=== PATIENT | female | born 1970 | race Caucasian/White ===

== ENCOUNTER 2017-08-22 18:00 | Observation (INO) | payer SELFPAY ==
[~2017-08-22] VITALS: Ht 157.5 cm; Wt 98.6 kg
[2017-08-22] MEDS ORDERED: NITROGLYCERIN 2% 1 GM OINT PKT TD STA (18:50)
[2017-08-22] MEDS ORDERED: ASPIRIN 81 MG TAB PO STA (18:50)
[2017-08-22] MEDS ORDERED: NITROGLYCERIN (SL) 0.4 MG TAB SL PRN ×2 (19:00→23:00)
[2017-08-22 19:07] LABS: BASOPHIL # 0.1 10^3/ul (0.0-0.1); BASOPHILS % 0.4 % (0.0-2.0); EOSINOPHILS # 0.2 10^3/ul (0.0-0.5); EOSINOPHILS % 1.3 % (0.0-7.0); HEMATOCRIT 45.5 % (37.0-47.0); HEMOGLOBIN 15.3 g/dl (12.0-16.0); LYMPHOCYTES % 35.4 % (15.0-51.0); MEAN CORPUSCULAR HEMOGLOBIN 29.9 pg (29.0-33.0); MEAN CORPUSCULAR HGB CONC 33.6 g/dl (32.0-37.0); MEAN PLATELET VOLUME 10.6 fl (7.4-10.4); MONOCYTE # 0.6 10^3/ul (0.3-0.9); MONOCYTES % 5.6 % (0.0-11.0); NEUTROPHIL # 6.4 10^3/ul (1.6-7.5); PLATELET COUNT 287 10^3/UL (140-415); RED BLOOD COUNT 5.11 10^6/ul (4.20-5.40); RED CELL DISTRIBUTION WIDTH 12.5 % (11.5-14.5); WHITE BLOOD COUNT 11.3 10^3/ul (4.8-10.8)
--- NOTE | 2017-08-22 19:26 | RADRPT ---
PROCEDURE: Chest x-ray CLINICAL INDICATION: Chest pain TECHNIQUE: Chest single view COMPARISON: None FINDINGS: The heart is normal in size. The pulmonary vessels are normal in caliber. The lungs are clear. Th e costophrenic angles are sharp. The visualized bony thorax is unremarkable. IMPRESSION: No acute cardiopulmonary disease. RPTAT: HH .Trevon Barragan MD, Date Time Electronically viewed and signed by .Trevon Barragan MD, MD on 08/22/2017 19:25 .W/
[2017-08-22 19:27] LABS: ANION GAP 15 (8-16); BLOOD UREA NITROGEN 14 mg/dl (7-20); CALCIUM 9.8 mg/dl (8.4-10.2); CARBON DIOXIDE 28 mmol/L (21-31); CHLORIDE 106 mmol/L (97-110); CREATININE 0.92 mg/dl (0.44-1.00); GLUCOSE 129 mg/dl (70-220); SODIUM 145 mmol/L (135-144)
[2017-08-22 19:41] LABS: TROPONIN-I < 0.012 ng/ml (0.00-0.12)
[2017-08-22] MEDS ORDERED: KETOROLAC 30 MG INJ IV STA (20:16)
[2017-08-22] MEDS ORDERED: ACETAMINOPHEN 325 MG TAB PO PRN (20:30)
[2017-08-22] MEDS ORDERED: ONDANSETRON 4 MG INJ IV PRN (20:30)
--- NOTE | 2017-08-22 20:51 | ERD ---
ER Documentation Chief Complaint Chief Complaint sent by clinic for cp, given nitro sl x1 (no relief), asa 81mg HPI Patient is a 47-year-old female with no medical problems who presents with chest pain and shortness of breath. She has had chest pain for 1 week. She has shortness of breath. She has dyspnea on exertion. She was sent by the clinic for chest pain and admission. She has diffuse weakness and right-sided arm numbness. Upon review of old medical records this is the patient's first visit to the emergency department. ROS All systems reviewed and are negative except as per history of present illness. Medications Home Meds No Active Prescriptions or Reported Meds Allergies Allergies: Coded Allergies: No Known Allergy (Unverified , 08/22/17) PMhx/Soc Medical and Surgical Hx: pt denies Medical Hx History of Surgery: No Anesthesia Reaction: No Hx Neurological Disorder: No Hx Respiratory Disorders: No Hx Cardiac Disorders: No Hx Psychiatric Problems: No Hx Miscellaneous Medical Probl: No Hx Alcohol Use: No Hx Substance Use: No Hx Tobacco Use: No Smoking Status: Never smoker FmHx Family History: coronary disease Physical Exam Vitals Vital Signs Date Time Temp Pulse Resp B/P Pulse Ox O2 Delivery O2 Flow Rate FiO2 08/22/17 18:01 98.6 83 20 183/97 98 Physical Exam Const: Moderate distress secondary to shortness of breath Head: Atraumatic Eyes: Normal Conjunctiva ENT: Normal External Ears, Nose and Mouth. Neck: Full range of motion..~ No meningismus. Resp: Clear to auscultation bilaterally Cardio: Regular rate and rhythm, no murmurs Abd: Soft, non tender, non distended. Normal bowel sounds Skin: No petechiae or rashes Back: No midline or flank tenderness Ext: No cyanosis, or edema Neur: Awake and alert Psych: Normal Mood and Affect Result Diagram: 08/22/17189908/22/171899 Results 24 hrs Laboratory Tests Test 08/22/17 19:00 White Blood Count 11.310^3/ul Red Blood Count 5.1110^6/ul Hemoglobin 15.3g/dl Hematocrit 45.5% Mean Corpuscular Volume 89.0fl Mean Corpuscular Hemoglobin 29.9pg Mean Corpuscular Hemoglobin Concent 33.6g/dl Red Cell Distribution Width 12.5% Platelet Count 41226^3/UL Mean Platelet Volume 10.6fl Neutrophils % 57.0% Lymphocytes % 35.4% Monocytes % 5.6% Eosinophils % 1.3% Basophils % 0.4% Nucleated Red Blood Cells % 0.0/100WBC Neutrophils # 6.410^3/ul Lymphocytes # 4.010^3/ul Monocytes # 0.610^3/ul Eosinophils # 0.210^3/ul Basophils # 0.110^3/ul Nucleated Red Blood Cells # 0.010^3/ul Sodium Level 145mmol/L Potassium Level 4.0mmol/L Chloride Level 106mmol/L Carbon Dioxide Level 28mmol/L Anion Gap 15 Blood Urea Nitrogen 14mg/dl Creatinine 0.92mg/dl Glucose Level 129mg/dl Calcium Level 9.8mg/dl Troponin I < 0.012ng/ml Current Medications Medications (Trade) Dose Ordered Sig/[place] Route PRN Reason Start Time Stop Time Status Last Admin Dose Admin Aspirin (Aspirin) 162 mg ONCE STAT PO 08/22/17 18:50 08/22/17 18:51 DC 08/22/17 19:08 Nitroglycerin (Nitroglycerin 2% Oint) 1 inch ONCE STAT TD 08/22/17 18:50 08/22/17 18:51 DC 08/22/17 19:09 Nitroglycerin (Nitroglycerin (Sl Tab) 0.4 Mg) 1 tab Q5M UP TO 3 DOSES PRN SL CHEST PAIN 08/22/17 19:00 Ondansetron HCl (Zofran Inj) 4 mg ER BRIDGE PRN IV NAUSEA AND/OR VOMITING 08/22/17 20:30 08/23/17 20:29 Acetaminophen (Tylenol Tab) 650 mg ER BRIDGE PRN PO MILD PAIN/FEVER 08/22/17 20:30 08/23/17 20:29 Ketorolac Tromethamine (Toradol) 30 mg ONCE STAT IV 08/22/17 20:16 08/22/17 20:17 DC 08/22/17 20:45 Procedures/MDM EKG read by me: Rate/Rhythm: Regular rate and rhythm at a normal rate Intervals: Normal Impression: No evidence of ischemia or arrhythmia Chest x-ray negative per radiology. Patient is a 47-year-old female with a family history of coronary disease who presents with chest pain and dyspnea on exertion. I am concerned for possible acute coronary syndrome given her symptoms. She was sent by an outpatient clinic for admission. I doubt pneumonia, pneumothorax, pulmonary embolism, or aortic dissection. The patient was given aspirin and nitroglycerin empirically. I believe an observation admission is appropriate at this time. Departure Diagnosis: Primary Impression: Chest pain Chest pain type: unspecified Qualified Code: R07.9 - Chest pain, unspecified type Condition: TEJ Fonseca MD Aug 22, 2017 20:51
[2017-08-22 20:56] VITALS: TEMP 98.6
[2017-08-22 21:12] VITALS: PULSE 75
[2017-08-22 21:19] VITALS: BP 131/78; RESP 16
[2017-08-22 21:34] VITALS: Ht 157.5 cm; Wt 98.6 kg
[2017-08-22] MEDS ORDERED: morphine 4 MG/ML VIAL IV PRN (23:00)
[2017-08-23] VITALS (10 sets, daily range): BP systolic 106–131; BP diastolic 52–80; PULSE 62–75; RESP 18–20
[2017-08-23 01:38] LABS: CREATINE KINASE 173 IU/L (23-200)
[2017-08-23 01:52] LABS: CK-MB 2.49 ng/ml (0.0-2.4)
[2017-08-23 01:57] LABS: TROPONIN-I < 0.012 ng/ml (0.00-0.12)
--- NOTE | 2017-08-23 05:01 | HP ---
Date/Time of Note Date/Time of Note DATE: 08/23/17 TIME: 04:58 Assessment/Plan VTE Prophylaxis VTE Prophylaxis Intervention: heparin Lines/Catheters IV [facility]from [facility] Saline Lock Urinary Cath still in place: No Assessment/Plan Assessment/Plan ASSESSMENT 47-year-old female with no significant past medical history, but a strong family history of heart disease presented with a progressively worsening chest pain and shortness of breath time 1 week as well as right arm numbness/ weakness. Need to rule out ACS PLAN Continue telemetry monitoring Supplemental oxygen, aspirin with as needed nitro morphine Trend troponins We will obtain 2D echo Cardiology consult Additional workup based on clinical course HPI/ROS Admit Date/Time Admit Date/Time Aug 22, 2017 at 20:02 Hx of Present Illness This is a 47-year-old female with no significant past medical history who presents to the emergency department complaining of chest pain and shortness of breath. She has been having the symptoms for about a month and has been progressively getting worse. She was seen at a clinic today and was sent to ER for evaluation. Chest pain is mainly located in the mid chest and is described as pressure-like, worse with exertion and better with rest. She also reported right upper extremity numbness/weakness, which has already resolved. She said her father of heart disease around the age of 35. When she presented to the ER, vitals were stable. Basic labs within acceptable range. First troponin is negative. EKG was no ST-T wave abnormalities. Chest x-ray was no acute cardiopulmonary disease. PMH/Family/Social Social History Smoking Status: Never smoker Exam/Review of Systems Vital Signs Vitals Vital Signs Date Time Temp Pulse Resp B/P Pulse Ox O2 Delivery O2 Flow Rate FiO2 08/23/17 04:47 97.5 69 20 118/68 97 Exam Constitutional: alert, oriented, well developed Head: atraumatic, normocephalic Eyes: EOMI, PERRL Respiratory: clear to auscultation, normal air movement Cardiovascular: nl pulses, regular rate and rhythm Gastrointestinal: soft Extremities: normal pulses Labs Result Diagram: 08/22/17189908/22/171899 Medications Medications Current Medications Nitroglycerin (Nitroglycerin (Sl Tab) 0.4 Mg) 1 tab Q5M PRN SL ANGINA Last administered on 08/22/17t 23:00; Admin Dose 1 TAB; Start 08/22/17 at 23:00 Morphine Sulfate (morphine) 3 mg Q4H PRN IV pain level above 7; Start 08/22/17 at 23:00 Heparin Sodium (Porcine) (Heparin (5000 Units/0.5 ml)) 5,000 unit BID SC ; Start 08/23/17 at 09:00 ODELL CAMPBELL MD Aug 23, 2017 05:01
[2017-08-23 08:15] LABS: CREATINE KINASE 154 IU/L (23-200)
[2017-08-23 08:25] LABS: TROPONIN-I < 0.012 ng/ml (0.00-0.12)
[2017-08-23] MEDS ORDERED: ASPIRIN (EC) 81 MG TAB PO SCH (09:00)
[2017-08-23] MEDS ORDERED: HEPARIN 5,000 UNIT/0.5 ML VIAL SC SCH (09:00)
--- NOTE | 2017-08-23 14:25 | PN ---
Date/Time of Note Date/Time of Note DATE: 08/23/17 TIME: 14:24 Assessment/Plan VTE Prophylaxis VTE Prophylaxis Intervention: heparin Lines/Catheters [facility] Saline Lock Urinary Cath still in place: No Assessment/Plan Chief Complaint/Hosp Course Patient is a 47-year-old female no [place] past medical history who presents with chest pain Assessment and plan Exertional chest pain Mild hypernatremia Obesity Strong history of cardiac disorder, father at 35 -Cardiology consulted, patient had classical chest pain symptoms, has not seen a PCP in quite a while, troponins are negative, echocardiogram pending -No chest pain now, monitor, will follow up with cardiology recommendations Disposition; pending cardiology next Problems: Subjective 24 Hr Interval Summary Free Text/Dictation no acute issues , no chest pain anymore Exam/Review of Systems Vital Signs Vitals Vital Signs Date Time Temp Pulse Resp B/P Pulse Ox O2 Delivery O2 Flow Rate FiO2 08/23/17 12:02 73 08/23/17 11:39 98.0 18 131/80 96 Intake and Output 08/22/17 08/22/17 08/23/17 15:00 23:00 07:00 Intake Total 200 ml Balance 200 ml Exam Physical exam General: Patient is laying in bed and answers questions appropriately Mentation: Patient is alert and oriented 4, Head: Normocephalic atraumatic Eyes: EOMI, pupils reactive to light Neck: Supple, nontender, midline Respiratory: Clear to auscultation bilaterally Cardiovascular: regular rate, no obvious murmurs Gastrointestinal: non-tender to palpation, bowel sounds heard. Neurological: Moves all extremities spontaneously Skin: No new skin lesions Results Result Diagram: 08/22/17189908/22/171899 Results 24 hrs Laboratory Tests Test 08/22/17 19:00 08/23/17 00:46 08/23/17 07:00 White Blood Count 11.3 H Red Blood Count 5.11 Hemoglobin 15.3 Hematocrit 45.5 Mean Corpuscular Volume 89.0 Mean Corpuscular Hemoglobin 29.9 Mean Corpuscular Hemoglobin Concent 33.6 Red Cell Distribution Width 12.5 Platelet Count 287 Mean Platelet Volume 10.6 H Neutrophils % 57.0 Lymphocytes % 35.4 Monocytes % 5.6 Eosinophils % 1.3 Basophils % 0.4 Nucleated Red Blood Cells % 0.0 Neutrophils # 6.4 Lymphocytes # 4.0 H Monocytes # 0.6 Eosinophils # 0.2 Basophils # 0.1 Nucleated Red Blood Cells # 0.0 Sodium Level 145 H Potassium Level 4.0 Chloride Level 106 Carbon Dioxide Level 28 Anion Gap 15 Blood Urea Nitrogen 14 Creatinine 0.92 Glucose Level 129 Calcium Level 9.8 Troponin I < 0.012 < 0.012 < 0.012 Creatine Kinase 173 154 Creatine Kinase Index 1.4 1.5 Creatinine Kinase MB (Mass) 2.49 H 2.30 Medications Medications Current Medications Nitroglycerin (Nitroglycerin (Sl Tab) 0.4 Mg) 1 tab Q5M PRN SL ANGINA Last administered on 08/22/17 23:00; Admin Dose 1 TAB; Start 08/22/17 at 23:00 Morphine Sulfate (morphine) 3 mg Q4H PRN IV pain level above 7; Start 08/22/17 at 23:00 Heparin Sodium (Porcine) (Heparin (5000 Units/0.5 ml)) 5,000 unit BID SC Last administered on 08/23/17 08:58; Admin Dose 5,000 UNIT; Start 08/23/17 at 09:00 Aspirin (Halfprin) 81 mg DAILY PO Last administered on 08/23/17 08:52; Admin Dose 81 MG; Start 08/23/17 at 09:00 JEOVANNY MEYER Aug 23, 2017 14:25
[2017-08-23] MEDS ORDERED: SOD CHLORIDE 0.45% 1,000 ML IV SCH (14:30)
--- NOTE | 2017-08-23 15:52 | RADRPT ---
Echocardiogram Report Patient Name: ESPERANZA NOVAK Gender: Female Date: 1970 Study Date: 23-Aug-2017 Incubator Operator: Say Sneed [facility] Location: 5545 Ref. Physician: ODELL CAMPBELL Quality: Good Procedures: Transthoracic echocardiogram with complete 2D, M-Mode, and doppler examination. Indications: Chest Pain. 2D/M Mode Doppler Measurement Value Normal Ranges Measurement Value Normal Ranges LVIDd 2D 3.9 3.5 - 5.6 cm AV Peak Emanuel 1.2 m/sec LVIDs 2D 2.1 2.1 - 4.1 cm AV Peak PG 6.0 mmHg FS 2D 47.6 % LVOT Peak Emanuel 1.1 m/sec LVPWd 2D 1.1 0.6 - 1.1 cm LVOT Peak PG 5.0 mmHg IVSd 2D 1.2 0.6 - 1.1 cm MV E Peak Emanuel 0.6 m/sec IVS/LVPW 2D 1.1 MV A Peak Emanuel 0.8 m/sec AoR Diam 2D 2.8 2.0 - 3.7 cm MV E/A 0.8 LA/Ao 2D 1 0 - 1 MV Decel Time 158 msec EDV 2D 60.7 cm3 MV E/A 0.8 ESV 2D 8.7 cm3 TR Peak Emanuel 2.2 m/sec LA Dimen 2D 3.4 2.3 - 4.0 cm TR Peak PG 18.0 mmHg RVSP 21.0 mmHg Findings Left Ventricle: Normal left ventricular systolic function. Normal left ventricular cavity size. Mild concentric left ventricular hypertrophy. Ejection fraction is visually estimated at 65 %. Tissue Doppler/Mitral Doppler indices are consistent with impaired relaxation (Stage I diastolic dysfunction). Right Ventricle: Normal right ventricular size. Normal right ventricular systolic function. Left Atrium: The left atrium is normal in size. Right Atrium: The right atrium is normal in size. Mitral Valve: Normal appearance of the mitral valve. Mild mitral annular calcification. Trace mitral regurgitation. Aortic Valve: No significant aortic stenosis or insufficiency. Aortic cusps appear mildly calcified. Tricuspid Valve: Normal appearance of the tricuspid valve. Estimated peak PA systolic pressure 21 mmHg. There is trace tricuspid regurgitation. Pulmonic Valve: Normal pulmonic valve appearance. Pericardium: Normal pericardium with no significant pericardial effusion. Aorta: Normal aortic root. IVC: Normal size and normal respiratory collapse consistent with normal right atrial pressure. Conclusions 1.Normal left ventricular systolic function. Normal left ventricular cavity size. Mild concentric left ventricular hypertrophy. Ejection fraction is visually estimated at 65 %. Tissue Doppler/Mitral Doppler indices are consistent with impaired relaxation (Stage I diastolic dysfunction). 2.Normal right ventricular size. Normal right ventricular systolic function. 3.The left atrium is normal in size. 4.The right atrium is normal in size. 5.No significant valvular stenosis or regurgitation seen. 6.Normal pericardium with no significant pericardial effusion. Electronically Signed By: Star Le 23-Aug-2017 15:51:41 -0800 Patient Name: ESPERANZA NOVAK Study Date: 23-Aug-2017 [id number]
[2017-08-23] MEDS ORDERED: LISI-313 PO (16:48)
[2017-08-23] MEDS ORDERED: ASPI-664 PO (16:48)
--- NOTE | 2017-08-23 16:49 | PDOCDIS ---
Discharge Instructions CONDITION Patient Condition: Stable FOLLOW UP/APPOINTMENTS Follow-up Plan 1. follow up with your primary care provider as soon as possible 2. Take medications as directed JEOVANNY MEYER Aug 23, 2017 16:49
--- NOTE | 2017-08-23 16:52 | DS ---
Date/Time of Note Date/Time of Note DATE: 08/23/17 TIME: 16:52 Discharge Summary Admission/Discharge Info Admit Date/Time Aug 22, 2017 at 20:02 Discharge Date/Time Patient Condition: Stable Hx of Present Illness This is a 47-year-old female with no significant past medical history who presents to the emergency department complaining of chest pain and shortness of breath. She has been having the symptoms for about a month and has been progressively getting worse. She was seen at a clinic today and was sent to ER for evaluation. Chest pain is mainly located in the mid chest and is described as pressure-like, worse with exertion and better with rest. She also reported right upper extremity numbness/weakness, which has already resolved. She said her father of heart disease around the age of 35. When she presented to the ER, vitals were stable. Basic labs within acceptable range. First troponin is negative. EKG was no ST-T wave abnormalities. Chest x-ray was no acute cardiopulmonary disease. Hospital Course Patient is a 39-year-old female with no significant past medical history who presents to [facility] after being sent from urgent care. Patient's labs and vital signs have been within normal limits during this admission, however patient states that her blood pressure was as high as 180 at the urgent care was given nitro for chest pain. Cardiology saw patient and after long discussion with cardiology and after reviewing echocardiogram, patient wishes to go home and will follow up with her primary care provider. Given her likely diagnosis of undiagnosed hypertension however given her normal vitals, a low dose of hypertension medication will be prescribed with strict instructions to follow with primary care provider soon as possible. Patient understands and wishes to go home. Exertional chest pain Mild hypernatremia Obesity Strong history of cardiac disorder, father at 35 Home Meds Active Scripts Lisinopril* (Lisinopril*) 5 Mg Tablet, 5 MG PO DAILY, #30 TAB 2 Refills Prov:JEOVANNY MEYER 08/23/17 Aspirin* (Aspirin* EC) 81 Mg Tablet., 81 MG PO DAILY for 30 Days, #30 2 Refills Prov:JEOVANNY MEYER 08/23/17 Follow-up Plan 1. follow up with your primary care provider as soon as possible 2. Take medications as directed Primary Care Provider Care Physician No Primary Time spent on discharge: > 30 minutes Pending Labs Laboratory Tests Test 08/22/17 19:00 08/23/17 00:46 08/23/17 07:00 White Blood Count 11.310^3/ul (4.8-10.8) Red Blood Count 5.1110^6/ul (4.20-5.40) Hemoglobin 15.3g/dl (12.0-16.0) Hematocrit 45.5% (37.0-47.0) Mean Corpuscular Volume 89.0fl (82.0-101.0) Mean Corpuscular Hemoglobin 29.9pg (29.0-33.0) Mean Corpuscular Hemoglobin Concent 33.6g/dl (32.0-37.0) Red Cell Distribution Width 12.5% (11.5-14.5) Platelet Count 11321^3/UL (140-415) Mean Platelet Volume 10.6fl (7.4-10.4) Neutrophils % 57.0% (39.0-77.0) Lymphocytes % 35.4% (15.0-51.0) Monocytes % 5.6% (0.0-11.0) Eosinophils % 1.3% (0.0-7.0) Basophils % 0.4% (0.0-2.0) Nucleated Red Blood Cells % 0.0/100WBC (0.0-0.0) Neutrophils # 6.410^3/ul (1.6-7.5) Lymphocytes # 4.010^3/ul (0.8-2.9) Monocytes # 0.610^3/ul (0.3-0.9) Eosinophils # 0.210^3/ul (0.0-0.5) Basophils # 0.110^3/ul (0.0-0.1) Nucleated Red Blood Cells # 0.010^3/ul (0.0-0.0) Sodium Level 145mmol/L (135-144) Potassium Level 4.0mmol/L (3.5-5.1) Chloride Level 106mmol/L (97-110) Carbon Dioxide Level 28mmol/L (21-31) Anion Gap 15 (8-16) Blood Urea Nitrogen 14mg/dl (7-20) Creatinine 0.92mg/dl (0.44-1.00) Glucose Level 129mg/dl (70-220) Calcium Level 9.8mg/dl (8.4-10.2) Troponin I < 0.012ng/ml (0.00-0.12) < 0.012ng/ml (0.00-0.12) < 0.012ng/ml (0.00-0.12) Creatine Kinase 173IU/L (23-200) 154IU/L (23-200) Creatine Kinase Index 1.4 1.5 Creatinine Kinase MB (Mass) 2.49ng/ml (0.0-2.4) 2.30ng/ml (0.0-2.4) JEOVANNY MEYER Aug 23, 2017 16:52
--- NOTE | 2017-08-23 17:36 | CONS ---
Date/Time of Note Date/Time of Note DATE: 08/23/17 TIME: 17:30 Assessment/Plan Assessment/Plan Additional Assessment/Plan Uncontrolled hypertension Headache, chest pain, arm pain and shortness of breath, resolved Preserved ejection fraction with mild left ventricular hypertrophy History of hypertension Obesity -Patient with uncontrolled blood pressure over the past few days. Once her blood pressure has been controlled, her symptoms have since resolved. Serial cardiac enzymes have remained negative, ECG without any significant ischemic abnormalities. Echocardiogram with preserved ejection fraction and mild left ventricular hypertrophy. Recommend low-sodium diet, consider a trial of lisinopril for blood pressure control given evidence of left ventricular hypertrophy, prophylactic baby aspirin. Patient requesting to go home today. I did discuss with the patient importance of close outpatient follow-up. Consultation Date/Type/Reason Admit Date/Time Aug 22, 2017 at 20:02 Type of Consultation: cv Reason for Consultation Cardiac evaluation Hx of Present Illness This is a 47-year-old female with past medical history of hypertension not on medications who presents with symptoms of chest pain, arm pain, fatigue and headache. Patient has noticed over the past approximately 4-5 days, she has been having symptoms of fatigue, right arm numbness and pressure in her head. At times this is exacerbated by activity at times this occurs at rest. She also complains of a chest discomfort in her mid chest. Symptoms come and go over the past few days and are not always present with activity. On Sunday, her symptoms worsened with severe headache and "feeling my head pounding". She went to urgent care yesterday and was found to have blood pressure above 180. She was given medication and her blood pressure improved to the 120s-130s. At that time her symptoms improved significantly. She came to the emergency room for further evaluation care. Her blood pressure was 180 in the emergency room and her symptoms recurred around this time. After her blood pressure was controlled, her symptoms have since resolved. Today, she has been ambulating the hallways and walking around without symptoms of chest pain, arm pain, shortness of breath or headache. She does complain of fatigue. 12 point review of systems was performed with all pertinent positives and negatives mentioned above and all else is negative Past Medical History Medical History: hypertension Past Surgical History and hysterectomy Family History Significant Family History: heart disease Social History Alcohol Use: none Smoking Status: Never smoker Other Social History Currently out of work, 2-3 cups of coffee a day Exam/Review of Systems Vital Signs Vitals Vital Signs Date Time Temp Pulse Resp B/P Pulse Ox O2 Delivery O2 Flow Rate FiO2 08/23/17 16:02 75 08/23/17 15:36 98.0 18 122/74 96 Intake and Output 08/22/17 08/22/17 08/23/17 14:59 22:59 06:59 Intake Total 200 ml Balance 200 ml Exam Obese, no apparent distress, sitting in chair Constitutional: alert, obese, oriented Head: normocephalic Neck: supple Respiratory: clear to auscultation, normal air movement Cardiovascular: other (S1-S2 heard, no murmurs appreciated), regular rate and rhythm Gastrointestinal: bowel sounds, non-tender, soft Extremities: other (Trace lower extremity edema) Results Result Diagram: 08/22/17189908/22/171899 Results 24 hrs Laboratory Tests Test 08/22/17 19:00 08/23/17 00:46 08/23/17 07:00 White Blood Count 11.3 H Red Blood Count 5.11 Hemoglobin 15.3 Hematocrit 45.5 Mean Corpuscular Volume 89.0 Mean Corpuscular Hemoglobin 29.9 Mean Corpuscular Hemoglobin Concent 33.6 Red Cell Distribution Width 12.5 Platelet Count 287 Mean Platelet Volume 10.6 H Neutrophils % 57.0 Lymphocytes % 35.4 Monocytes % 5.6 Eosinophils % 1.3 Basophils % 0.4 Nucleated Red Blood Cells % 0.0 Neutrophils # 6.4 Lymphocytes # 4.0 H Monocytes # 0.6 Eosinophils # 0.2 Basophils # 0.1 Nucleated Red Blood Cells # 0.0 Sodium Level 145 H Potassium Level 4.0 Chloride Level 106 Carbon Dioxide Level 28 Anion Gap 15 Blood Urea Nitrogen 14 Creatinine 0.92 Glucose Level 129 Calcium Level 9.8 Troponin I < 0.012 < 0.012 < 0.012 Creatine Kinase 173 154 Creatine Kinase Index 1.4 1.5 Creatinine Kinase MB (Mass) 2.49 H 2.30 Medications Medications Current Medications Nitroglycerin (Nitroglycerin (Sl Tab) 0.4 Mg) 1 tab Q5M PRN SL ANGINA Last administered on 08/22/17t 23:00; Admin Dose 1 TAB; Start 08/22/17 at 23:00 Morphine Sulfate (morphine) 3 mg Q4H PRN IV pain level above 7; Start 08/22/17 at 23:00 Heparin Sodium (Porcine) (Heparin (5000 Units/0.5 ml)) 5,000 unit BID SC Last administered on 08/23/17 08:58; Admin Dose 5,000 UNIT; Start 08/23/17 at 09:00 Aspirin 81 mg 81 mg DAILY PO Last administered on 08/23/17 08:52; Admin Dose 81 MG; Start 08/23/17 at 09:00 Sodium Chloride (1/2 NS) 1,000 ml @ 70 mls/hr [id number] IV Last administered on 08/23/17 16:01; Admin Dose 70 MLS/HR; Start 08/23/17 at 14:30 Procedures Procedures ECG demonstrates sinus rhythm, normal QRS duration, no significant ischemic ST abnormalities Star Le DO Aug 23, 2017 17:35
== END 2017-08-23 18:58 | disposition home or self-care (01) ==
LOC: E/R 18:00 → MS4 20:02
PROVIDERS: ADMIT Internal Medicine; ATTEND Internal Medicine
DX: R07.9 Chest pain, unspecified (principal); I10 Essential (primary) hypertension; E87.0 Hyperosmolality and hypernatremia; E66.9 Obesity, unspecified; Z68.39 Body mass index [BMI] 39.0-39.9, adult; Z82.49 Family history of ischemic heart disease and other diseases of the circulatory system
CPT/HCPCS: 36415; 71010; 80048; 82550; 82553; 84484; 85025; 93005; 93306; 96374; 99217; 99285; G0378; J1644; J1885